=== PATIENT | female | born 1950 | race Caucasian/White ===

== ENCOUNTER 2017-01-04 07:26 | Day surgery (SDC) | payer MEDICARE, BC ==
[~2017-01-04 07:26] MED LIST: Lactated Ringers 1,000 ML IV SCH; Lidocaine 1% 4 ML ONE; Lidocaine 1%/Sod Bicarbonate in NS 8.4% 1 ML Syringe IV PRN; Propofol 200 MG/20 ML SDV ONE; Sodium Chloride 0.9% 10 ML Syringe FLUSH PRN; fentaNYL 100 MCG/2 ML SDV ONE
--- NOTE | 2017-01-04 07:37 | PCM.PREANE ---
Preanesthetic Assessment - Anesthesia/Transfusion/Family Hx Anesthesia History: Prior Anesthesia Without Reaction Family History of Anesthesia Reaction: No Transfusion History: No Prior Transfusion(s) Intubation History: Unknown - Review of Systems General: No Symptoms Pulmonary: No Symptoms (Quit smoking 30 yrs old. Patient states she has a couple spots on her lungs that the doctors are watching.) Cardiovascular: No Symptoms (History of A-Fib/HTN- last dose xarelto on 01-01-17 , lovenox injection on 01-03-17) Gastrointestinal: No Symptoms (GERD), Constipation, Diarrhea Neurological: No Symptoms (Low back pain radiating to right leg.), Numbness ( numbness noted on left upper leg on occasion) Other: Reports: Easy Bleeding, Easy Bruising, Diabetes (AM blood hpiqm=401 @ 0742), Sinus Problem (Acute sinusitis/allergic rhinitis) - Physical Assessment NPO Status Date: 01/03/17 NPO Status Time: 21:00 Pulse: 84 O2 Sat by Pulse Oximetry: 96 Respiratory Rate: 16 Blood Pressure: 111/74 Temperature: 37.0 C Height: 1.63 m Weight: 104.326 kg ASA Class: 2 Mental Status: Alert & Oriented x3 Airway Class: Mallampati = 2 Dentition: Reports: Normal Dentition, [place](s), [place] Thyro-Mental Finger Breadths: 3 Mouth Opening Finger Breadths: 3 ROM/Head Extension: Full Lungs: Clear to Auscultation, Normal Respiratory Effort Cardiovascular: Regular Rate, Regular Rhythm - Imaging/EKG Impressions: EKG: AFib rate=70 - Allergies Allergies/Adverse Reactions: Allergies Allergy/AdvReac Type Severity Reaction Status Date / Time No Known Allergies Allergy Verified 01/04/17 08:10 - Anesthesia Plan Pre-Op Medication Ordered: Beta Alice Beta Alice: Atenolol Med Last Dose Date: 01/04/17 Med Last Dose Time: 06:00 - Acknowledgements Anesthesia Type Planned: MAC Pt an Appropriate Candidate for the Planned Anesthesia: Yes Alternatives and Risks of Anesthesia Discussed w Pt/Guardian: Yes Pt/Guardian Understands and Agrees with Anesthesia Plan: Yes PreAnesthesia Questionnaire HEENT History: Reports: Allergic Rhinitis, Impaired Vision, Sinusitis Cardiovascular History: Reports: Afib, Heart Murmur, High Cholesterol, Hypertension, Other (See Below) Other Cardiovascular History: thoracic aortic aneurysm Respiratory History: Reports: None Gastrointestinal History: Reports: GERD, Hemorrhoids, Other (See Below) Other Gastrointestinal History: dysphagia, rectal bleeding Genitourinary History: Reports: Renal Calculus PROFESSOR OF BUSINESS ADMINISTRATION History: Reports: None Musculoskeletal History: Reports: Arthritis, Other (See Below) Other Musculoskeletal History: right lower leg radiculopathy Neurological History: Reports: Other (See Below) Other Neuro History: lumbar degerative joint disease, low back surgery Psychiatric History: Reports: Other (See Below) Other Psychiatric History: fatigue Endocrine/Metabolic History: Reports: Diabetes, Type II Hematologic History: Reports: None Immunologic History: Reports: None Oncologic (Cancer) History: Reports: Basal Cell Carcinoma Dermatologic History: Reports: Other (See Below) Other Dermatologic History: actinic keratosis, atypical skin lesion - Past Surgical History Cardiovascular Surgical History: Reports: None Respiratory Surgical History: Reports: None GI Surgical History: Reports: Appendectomy, Cholecystectomy, Colonoscopy Female Surgical History: Reports: None, Hysterectomy, Oophorectomy Male Surgical History: Reports: None Endocrine Surgical History: Reports: None Neurological Surgical History: Reports: None Oncologic Surgical History: Reports: None - SUBSTANCE USE Smoking Status *Q: Former Smoker Recreational Drug Use History: No - HOME MEDS Home Medications: Home Meds Aspirin 81 mg PO DAILY 01/03/17 [History] Atenolol [Atenolol] 100 mg PO DAILY 01/03/17 [History] Cholecalciferol (Vitamin D3) [Vitamin D3] 1,000 mg PO DAILY 01/03/17 [History] Hydrochlorothiazide 12.5 mg PO DAILY 01/03/17 [History] Lisinopril [Lisinopril] 10 mg PO DAILY 01/03/17 [History] Multivitamin [Poly-Vitamin] 1 tab PO DAILY 01/03/17 [History] Rivaroxaban [Xarelto] 20 mg PO DAILY 01/03/17 [History] Simvastatin [Zocor] 20 mg PO DAILY 01/03/17 [History] metFORMIN [Glucophage XR] 750 mg PO DAILY 01/03/17 [History] traMADol [Ultram] 50 mg PO DAILY 01/03/17 [History] - CURRENT (IN HOUSE) MEDS Current Meds: Current Medications Lactated Ringer's (Ringers, Lactated) 1,000 mls @ 125 mls/hr IV ASDIRECTED JACEK Lidocaine/Sodium Bicarbonate (Buffered Lidocaine 1% In Ns 8.4%) 0.25 ml IV ONETIME PRN PRN Reason: Prior to IV Start Sodium Chloride (Saline Flush) 10 ml FLUSH ASDIRECTED PRN PRN Reason: Keep Vein Open Discontinued Medications Fentanyl (Sublimaze) Confirm Administered Dose 100 mcg .ROUTE .STK-MED ONE Stop: 01/04/17 07:25 Lidocaine HCl (Xylocaine-Mpf 1%) Confirm Administered Dose 4 mls @ as directed .ROUTE .STK-MED ONE Stop: 01/04/17 07:23 Propofol (Diprivan 20 Ml) Confirm Administered Dose 200 mg .ROUTE .STK-MED ONE Stop: 01/04/17 07:24
--- NOTE | 2017-01-04 09:00 | PCM.OPNOTE ---
- General Post-Op/Procedure Note Date of Surgery/Procedure: 01/04/17 Operative Procedure(s): Colonoscopy with proximal transverse colon and sigmoid polypectomy using cold forceps Findings: 1. Prominent anal tags 2. 3 column slightly prolapsing bleeding internal hemorrhoids 3. Sigmoid and transverse colonic diverticulosis 4. Diminutive 5 mm polyps of the proximal transverse colon and sigmoid No mass lesion seen Pre Op Diagnosis: Bright red bleeding per rectum Post-Op Diagnosis: 1. Internal hemorrhoids with perianal tags. 2. Diminutive colon polyps 2. 3. Uncomplicated diverticulosis Anesthesia Technique: MAC, Moderate Sedation Primary Surgeon: Amadou Richards Pathology: 2 polyps EBL in mLs: 0 Complications: None Condition: Good Free Text/Narrative:: After adequate IV sedation and analgesia was obtained with monitoring the patient was placed on her left side. Perianal inspection revealed a moderately large anal tag. There were slightly prolapsing 3 column internal hemorrhoids which were bleeding slightly. There was no strangulation or gangrene. Digital rectal examination revealed normal sphincter tone and I appreciated the protruding luminal hemorrhoids. A lubricated colonoscope was then inserted into the rectum and advanced to the cecum without difficulty area of the bowell preparation was fair. The cecum and ascending colon were endoscopically normal with no mass lesions or inflammatory changes seen. There was a diminutive polyp in the proximal transverse colon which was removed with cold forceps. There were a few scattered uncomplicated diverticuli in the transverse colon. The descending colon was endoscopically normal. There were a few scattered diverticula in the sigmoid. In the proximal sigmoid there was a diminutive polyp which was removed with cold forceps. The rectum proximally was unremarkable. In the retroflexed view the internal hemorrhoids were observed. There were no clots in the rectum. The were no mass lesions in the rectum and sigmoid. Production Control Expediter photographs were taken for the patient and for the medical record.
--- NOTE | 2017-01-04 09:05 | PCM48HPAN ---
Post Anesthesia Note - EVALUATION WITHIN 48HRS OF ANESTHETIC Vital Signs in Normal Range: Yes Patient Participated in Evaluation: Yes Respiratory Function Stable: Yes Airway Patent: Yes Cardiovascular Function Stable: Yes Hydration Status Stable: Yes Pain Control Satisfactory: Yes Nausea and Vomiting Control Satisfactory: Yes Mental Status Recovered: Yes - COMMENTS/OBSERVATIONS Free Text/Narrative:: Pt resting quietly. VSS. No c/0 discomfort
== END 2017-01-04 09:50 | disposition home or self-care (01) ==
LOC: JD.SDS 07:26
PROVIDERS: ATTEND Surgery
DX: D12.3 Benign neoplasm of transverse colon (principal); K57.30 Diverticulosis of large intestine without perforation or abscess without bleeding; K64.8 Other hemorrhoids; K64.4 Residual hemorrhoidal skin tags; I10 Essential (primary) hypertension; K21.9 Gastro-esophageal reflux disease without esophagitis; E11.9 Type 2 diabetes mellitus without complications; Z79.82 Long term (current) use of aspirin; Z79.84 Long term (current) use of oral hypoglycemic drugs; Z79.899 Other long term (current) drug therapy; Z90.49 Acquired absence of other specified parts of digestive tract; Z90.710 Acquired absence of both cervix and uterus; Z87.891 Personal history of nicotine dependence
CPT/HCPCS: 45380; 82962; J7120; 00810; 88305; J2704; J3010

== ENCOUNTER 2017-07-19 16:29 | Emergency (ER) | payer MEDICARE, BC ==
--- NOTE | 2017-07-19 16:49 | EDM.PDOC ---
ED HPI GENERAL MEDICAL PROBLEM - General Chief Complaint: Cardiovascular Problem Stated Complaint: SHORTNESS OF BREATH/ LOW BLOOD PRESSURE Time Seen by Provider: 07/19/17 16:49 Source of Information: Reports: Patient - History of Present Illness INITIAL COMMENTS - FREE TEXT/NARRATIVE: Patient is here for persistent fatigue and weakness. She has known anemia, had a benefit for infusion yesterday. She presents to the emergency room today as she felt lightheaded and she has been trying to take her blood pressure and it was too low for her to register on her home BP monitor. It was recommended by her primary provider that she be evaluated in the emergency room if blood pressure was low. Patient states that overall her fatigue and dyspnea on exertion is stable. Patient denies any chest pain. She does have chronic atrial fibrillation, she is beta suman and Xarelto for this. She has persistently bleeding hemorrhoids which is likely the source of her anemia. She has been referred to surgery for more permanent treatment of this. - Related Data Allergies Allergy/AdvReac Type Severity Reaction Status Date / Time No Known Allergies Allergy Verified 07/19/17 16:36 Home Meds: Home Meds Aspirin 81 mg PO DAILY 01/03/17 [History] Atenolol 100 mg PO DAILY 01/03/17 [History] Cholecalciferol (Vitamin D3) [Vitamin D3] 2,000 mg PO DAILY 01/03/17 [History] Lisinopril 10 mg PO DAILY 01/03/17 [History] Multivitamin [Poly-Vitamin] 1 tab PO DAILY 01/03/17 [History] Rivaroxaban [Xarelto] 20 mg PO DAILY 01/03/17 [History] Simvastatin [Zocor] 20 mg PO DAILY 01/03/17 [History] metFORMIN [Glucophage XR] 750 mg PO DAILY 01/03/17 [History] Furosemide [Lasix] 20 mg PO DAILY 07/18/17 [History] Magnesium 250 mg PO DAILY 07/18/17 [History] Past Medical History HEENT History: Reports: Allergic Rhinitis, Impaired Vision, Sinusitis Cardiovascular History: Reports: Afib, Heart Murmur, High Cholesterol, Hypertension, Other (See Below) Other Cardiovascular History: thoracic aortic aneurysm Respiratory History: Reports: None Gastrointestinal History: Reports: GERD, Hemorrhoids, Other (See Below) Other Gastrointestinal History: dysphagia, rectal bleeding Genitourinary History: Reports: Renal Calculus CIRCULAR KNITTER History: Reports: None Musculoskeletal History: Reports: Arthritis, Other (See Below) Other Musculoskeletal History: right lower leg radiculopathy Neurological History: Reports: Other (See Below) Other Neuro History: lumbar degerative joint disease, low back surgery Psychiatric History: Reports: Other (See Below) Other Psychiatric History: fatigue Endocrine/Metabolic History: Reports: Diabetes, Type II Hematologic History: Reports: None Immunologic History: Reports: None Oncologic (Cancer) History: Reports: Basal Cell Carcinoma Dermatologic History: Reports: Other (See Below) Other Dermatologic History: actinic keratosis, atypical skin lesion - Past Surgical History Cardiovascular Surgical History: Reports: None Respiratory Surgical History: Reports: None GI Surgical History: Reports: Appendectomy, Cholecystectomy, Colonoscopy Female Surgical History: Reports: None, Hysterectomy, Oophorectomy Endocrine Surgical History: Reports: None Neurological Surgical History: Reports: None Oncologic Surgical History: Reports: None Social & Family History - Tobacco Use Smoking Status *Q: Former Smoker Used Tobacco, but Quit: No Month/Year Tobacco Last Used: 1974 - Caffeine Use Caffeine Use: Reports: Soda ED ROS GENERAL - Review of Systems Review Of Systems: See Below Constitutional: Reports: Malaise, Weakness, Fatigue. Denies: Fever, Chills, Night Sweats, Diaphoresis, Decreased Appetite HEENT: Reports: No Symptoms Respiratory: Reports: Shortness of Breath. Denies: Wheezing, Pleuritic Chest Pain, Cough Cardiovascular: Reports: Blood Pressure Problem, Dyspnea on Exertion, Edema, Lightheadedness. Denies: Chest Pain, Orthopnea, PND, Syncope Endocrine: Reports: Fatigue GI/Abdominal: Reports: Diarrhea, Other (hemorrhoids). Denies: Abdominal Pain, Constipation, Decreased Appetite : Reports: No Symptoms Musculoskeletal: Reports: No Symptoms Skin: Reports: No Symptoms Neurological: Reports: No Symptoms ED EXAM, GENERAL - Physical Exam Exam: See Below Exam Limited By: No Limitations General Appearance: Alert, WD/WN Eye Exam: Bilateral Eye: PERRL Throat/Mouth: Normal Inspection, Normal Oropharynx Head: Atraumatic, Normocephalic Neck: Normal Inspection, Supple, Non-Tender Respiratory/Chest: No Respiratory Distress, Lungs Clear, Normal Breath Sounds Cardiovascular: Systolic Murmur (II/), Irregularly Irregular Peripheral Pulses: 2+: Posterior Tibial (L), Posterior Tibial (R) GI/Abdominal: Normal Bowel Sounds, Soft, Non-Tender Neurological: Alert, Oriented, CN II-XII Intact Psychiatric: Normal Affect, Normal Mood Skin Exam: Warm, Dry, Intact EKG INTERPRETATION EKG Date: 07/19/17 Time: 16:40 Rhythm: A-Fib Rate (Beats/Min): 91 EKG Interpretation Comments: Reviewed with Dr Lynn Course - Vital Signs Last Recorded V/S: Last Vital Signs Temp 97.9 F 07/19/17 16:37 Pulse 90 07/19/17 16:37 Resp 17 07/19/17 16:37 BP 112/69 07/19/17 16:37 Pulse Ox 99 07/19/17 16:37 - Orders/Labs/Meds Orders: Active Orders 24 hr Category Date Time Status EKG 12 Lead [EKG Documentation Completion] [RC] STAT Care 07/19/17 16:35 Active T4 FREE [CHEM] Stat Lab 07/19/17 16:40 Received Labs: Laboratory Tests 07/19/17 07/19/17 07/19/17 Range/Units 16:40 16:40 16:40 WBC 7.34 (3.98-10.04) K/mm3 RBC 3.79 L (3.98-5.22) M/mm3 Hgb 9.1 L (11.2-15.7) gm/L Hct 30.3 L (34.1-44.9) % MCV 79.9 (79.4-94.8) fl MCH 24.0 L (25.6-32.2) pg MCHC 30.0 L (32.2-35.5) g/dl RDW Std Deviation 38.6 (36.4-46.3) fL Plt Count 278 (182-369) K/mm3 MPV 11.5 (9.4-12.3) fl Neutrophils % (Manual) 62 H (40-60) % Band Neutrophils % 0 (0-10) % Lymphocytes % (Manual) 30 (20-40) % Atypical Lymphs % 0 % Monocytes % (Manual) 5 (2-10) % Eosinophils % (Manual) 3 (0.7-5.8) % Basophils % (Manual) 0 L (0.1-1.2) Platelet Estimate Adequate Polychromasia Few Hypochromasia 1+ slight Poikilocytosis 1+ slight Anisocytosis 1+ slight Ovalocytes Few RBC Morph Comment Not Reportable Sodium 140 (136-145) mEq/L Potassium 4.1 (3.5-5.1) mEq/L Chloride 101 (98-107) mEq/L Carbon Dioxide 29 (21-32) mEq/L Anion Gap 14.1 (5-15) BUN 35 H (7-18) mg/dL Creatinine 1.6 H (0.55-1.02) mg/dL Est Cr Clr Drug Dosing 29.46 mL/min Estimated GFR (MDRD) 32 (>60) mL/min BUN/Creatinine Ratio 21.9 H (14-18) Glucose 107 (80-115) mg/dL Calcium 9.3 (8.5-10.1) mg/dL Magnesium 1.7 L (1.8-2.4) mg/dl Total Bilirubin 0.2 (0.2-1.0) mg/dL AST 17 (15-37) U/L ALT 20 (14-59) U/L Alkaline Phosphatase 59 (46-116) U/L Troponin I < 0.017 (0.00-0.056) ng/mL C-Reactive Protein < 0.2 (<1.0) mg/dL Total Protein 7.2 (6.4-8.2) g/dl Albumin 3.4 (3.4-5.0) g/dl Globulin 3.8 gm/dL Albumin/Globulin Ratio 0.9 L (1-2) TSH 3rd Generation 4.029 H (0.358-3.74) uIU/mL - Re-Assessments/Exams Free Text/Narrative Re-Assessment/Exam: Patient denies any chest pain. Had recent normal chest x-ray, though these results are unable for us to review. Patient declines repeat chest x-ray. Her oxygen is 99% on room air and her lungs are clear bilaterally. She does have chronic atrial fibrillation which is rate controlled. She is scheduled for an echocardiogram next week. Has had regular follow-up with cardiology in September. Blood pressure is in normal range here in the emergency room. EKG demonstrates chronic atrial fibrillation that is rate controlled. WBC 7,340 with 62% neutrophils and no bands. CRP <0.2. Troponin is negative. Hemoglobin is 9.1, which is already at 0.1 from yesterday. She is also going to add an oral iron supplement. Advised that she monitor for any constipation, though she does have chronic diarrhea so this should not be an issue. Anemia is likely the cause of her fatigue but this will need to be monitored. She has been referred to surgery for more permanent repair of her persistently bleeding hemorrhoids. Creatinine has increased to 1.6 from 1.4 yesterday and 1.6 months ago. Will have patient hold her Lasix and hydrochlorothiazide for now. This is likely contributing to her hypotension as well as increasing creatinine. Will have her follow very low sodium diet. She is to wear her compression stockings daily. TSH 4.029, this is up from 3.748 in January. This is likely subclinical thyroid hypothyroidism, but free T4 is still pending. Patient will call the clinic for this result either tomorrow or discuss with PCP at her follow-up next week. If her fatigue is not improving with the improvement in her anemia, may consider treating this if she is symptomatic. Patient will follow up with PCP next week or return to the emergency room if needed. 07/19/17 18:30 Departure - Departure Time of Disposition: 18:37 Disposition: Home, Self-Care 01 Condition: Good Clinical Impression: Elevated serum creatinine Anemia, iron deficiency Qualifiers: Iron deficiency anemia type: chronic blood loss Qualified Code(s): D50.0 - Iron deficiency anemia secondary to blood loss (chronic) Fatigue Qualifiers: Fatigue type: unspecified Qualified Code(s): R53.83 - Other fatigue Instructions: Anemia, Fatigue Referrals: aMyda Whitfield HARVESTING SUPERVISOR [Primary Care Provider] - Forms: ED Department Discharge Additional Instructions: Start a daily oral [id number] iron supplement. Hold your Lasix and hydrochlorothiazide both for now. Wear compression stockings daily. Follow a low-salt diet. Follow-up with your primary provider next week or return to the emergency room if needed. - My Orders Last 24 Hours: My Active Orders 07/19/17 16:35 EKG 12 Lead [EKG Documentation Completion] [RC] STAT 07/19/17 16:40 T4 FREE [CHEM] Stat - Assessment/Plan Last 24 Hours: My Active Orders 07/19/17 16:35 EKG 12 Lead [EKG Documentation Completion] [RC] STAT 07/19/17 16:40 T4 FREE [CHEM] Stat
== END 2017-07-19 18:35 | disposition home or self-care (01) ==
LOC: JD.ED 16:29
DX: D50.0 Iron deficiency anemia secondary to blood loss (chronic) (principal); R79.89 Other specified abnormal findings of blood chemistry; E78.00 Pure hypercholesterolemia, unspecified; I10 Essential (primary) hypertension; I48.91 Unspecified atrial fibrillation; K21.9 Gastro-esophageal reflux disease without esophagitis; Z87.442 Personal history of urinary calculi; E11.9 Type 2 diabetes mellitus without complications; Z90.49 Acquired absence of other specified parts of digestive tract; Z79.82 Long term (current) use of aspirin; Z79.899 Other long term (current) drug therapy; Z79.84 Long term (current) use of oral hypoglycemic drugs; Z87.891 Personal history of nicotine dependence
CPT/HCPCS: 36415; 80053; 83735; 84439; 84443; 84484; 85007; 85027; 86140; 93005; 99285-25

== ENCOUNTER 2019-09-20 10:54 | Emergency (ER) | payer MEDICARE, BC ==
[2019-09-20] MEDS ORDERED: Alum Hydrox/Mag Hydrox/Simeth 30 ML, Lidocaine 2% 15 ML PO ONE ×2 (11:46)
--- NOTE | 2019-09-20 12:16 | CR ---
Chest: 2 views of the chest were obtained. Comparison: No prior chest imaging. Heart is mildly enlarged. Upper mediastinum is normal. Slight scarring or atelectasis is noted within the mid left lung. Pulmonary vessels are minimally congested. No pleural effusions are appreciated. Bony structures show scattered degenerative change with disc space narrowing and endplate spurring within the spine. Impression: 1. Heart slightly enlarged with minimal pulmonary vascular congestion. 2. Minimal scarring or atelectasis within the left midlung. 3. Degenerative change within the spine. Diagnostic code #3 This report was dictated in MDT
--- NOTE | 2019-09-20 12:22 | EDM.PDOC ---
ED HPI GENERAL MEDICAL PROBLEM - General Chief Complaint: Gastrointestinal Problem Stated Complaint: HEART BURN Time Seen by Provider: 09/20/19 11:24 Source of Information: Reports: Patient History Limitations: Reports: No Limitations - History of Present Illness INITIAL COMMENTS - FREE TEXT/NARRATIVE: Patient is a 69-year-old female who presents to the emergency department with 3- day history of intermittent chest "heaviness" and belching. She describes it as heartburn. She states that she has had a hiatal hernia in the past with a diagnosis of GERD, however does not cause problems for "quite a while ". Her symptoms began Monday morning. She states that the symptoms are worse in the morning and tend to improve throughout the day. Is also improved with eating. She has had increased belching. She has not taken any [id number] medications. She is not on a PPI. She denies any shortness of breath, nausea, vomiting, or diarrhea. - Related Data Allergies Allergy/AdvReac Type Severity Reaction Status Date / Time No Known Allergies Allergy Verified 09/20/19 11:06 Home Meds: Home Meds Cholecalciferol (Vitamin D3) [Vitamin D3] 2,000 mg PO DAILY 01/03/17 [History] Lisinopril 10 mg PO DAILY 01/03/17 [History] Multivitamin [Poly-Vitamin] 1 tab PO DAILY 01/03/17 [History] atenoloL [Atenolol] 100 mg PO DAILY 01/03/17 [History] Simvastatin [Zocor] 20 mg PO DAILY 08/01/17 [History] Apixaban [Eliquis] 5 mg PO BID 09/20/19 [History] Omeprazole 20 mg PO ASDIRECTED #35 capsule. 09/20/19 [Rx] Oxybutynin Chloride [Ditropan Xl] 10 mg PO DAILY 09/20/19 [History] SitaGLIPtin [Januvia] 100 mg PO DAILY 09/20/19 [History] Sucralfate [Carafate] 1 gm PO QIDACANDBED 10 Days #40 tablet 09/20/19 [Rx] Past Medical History HEENT History: Reports: Allergic Rhinitis, Impaired Vision, Sinusitis Cardiovascular History: Reports: Afib, Heart Murmur, High Cholesterol, Hypertension, Other (See Below) Other Cardiovascular History: thoracic aortic aneurysm Respiratory History: Reports: None Gastrointestinal History: Reports: GERD, Hemorrhoids, Other (See Below) Other Gastrointestinal History: dysphagia, rectal bleeding Genitourinary History: Reports: Renal Calculus FRIT MIXER AND BURNER History: Reports: None Musculoskeletal History: Reports: Arthritis, Other (See Below) Other Musculoskeletal History: right lower leg radiculopathy Neurological History: Reports: Other (See Below) Other Neuro History: lumbar degerative joint disease, low back surgery Psychiatric History: Reports: Other (See Below) Other Psychiatric History: fatigue Endocrine/Metabolic History: Reports: Diabetes, Type II Hematologic History: Reports: None Immunologic History: Reports: None Oncologic (Cancer) History: Reports: Basal Cell Carcinoma Dermatologic History: Reports: Other (See Below) Other Dermatologic History: actinic keratosis, atypical skin lesion - Past Surgical History Cardiovascular Surgical History: Reports: None Respiratory Surgical History: Reports: None GI Surgical History: Reports: Appendectomy, Cholecystectomy, Colonoscopy Female Surgical History: Reports: None, Hysterectomy, Oophorectomy Endocrine Surgical History: Reports: None Neurological Surgical History: Reports: None Oncologic Surgical History: Reports: None Social & Family History - Family History Family Medical History: Noncontributory - Tobacco Use Smoking Status *Q: Former Smoker Used Tobacco, but Quit: Yes Month/Year Tobacco Last Used: 02/1979 - Caffeine Use Caffeine Use: Reports: None - Recreational Drug Use Recreational Drug Use: No ED ROS GENERAL - Review of Systems Review Of Systems: See Below Constitutional: Reports: No Symptoms. Denies: Fever, Chills HEENT: Reports: No Symptoms Respiratory: Reports: No Symptoms. Denies: Shortness of Breath, Cough Cardiovascular: Reports: No Symptoms. Denies: Chest Pain, Lightheadedness, Palpitations Endocrine: Reports: No Symptoms GI/Abdominal: Reports: Other (Chest heaviness and belching). Denies: Abdominal Pain, Diarrhea, Nausea, Vomiting : Reports: No Symptoms Musculoskeletal: Reports: No Symptoms Skin: Reports: No Symptoms Neurological: Reports: No Symptoms Psychiatric: Reports: No Symptoms Hematologic/Lymphatic: Reports: No Symptoms Immunologic: Reports: No Symptoms ED EXAM, GENERAL - Physical Exam Exam: See Below Exam Limited By: No Limitations General Appearance: Alert, WD/WN, No Apparent Distress Respiratory/Chest: No Respiratory Distress, Lungs Clear, Normal Breath Sounds, No Accessory Muscle Use, Chest Non-Tender Cardiovascular: Normal Peripheral Pulses, Regular Rate, Rhythm, No Edema, No Gallop, No JVD, No Murmur, No Rub GI/Abdominal: Normal Bowel Sounds, Soft, Non-Tender, No Organomegaly, No Distention, No Abnormal Bruit, No Mass Neurological: Alert, Oriented, CN II-XII Intact, Normal Cognition, Normal Gait, Normal Reflexes, No Motor/Sensory Deficits Psychiatric: Normal Affect, Normal Mood Skin Exam: Warm, Dry, Intact, Normal Color, No Rash EKG INTERPRETATION EKG Date: 09/20/19 Time: 11:54 Rhythm: A-Fib Rate (Beats/Min): 58 [place]: Normal P-Wave: Present QRS: Normal ST-T: Normal QT: Normal Comparison: NA - No Prior EKG Course - Vital Signs Last Recorded V/S: Last Vital Signs Temp 97.8 F 09/20/19 11:11 Pulse 78 09/20/19 11:11 Resp 14 09/20/19 11:11 BP 127/94 H 09/20/19 11:11 Pulse Ox 99 09/20/19 11:11 - Orders/Labs/Meds Orders: Active Orders 24 hr Category Date Time Status EKG Documentation Completion [RC] STAT Care 09/20/19 11:24 Active Labs: Laboratory Tests 09/20/19 09/20/19 Range/Units 11:43 11:43 WBC 10.15 H (3.98-10.04) K/mm3 RBC 5.42 H (3.98-5.22) M/mm3 Hgb 13.8 (11.2-15.7) gm/dl Hct 43.1 (34.1-44.9) % MCV 79.5 D (79.4-94.8) fl MCH 25.5 L (25.6-32.2) pg MCHC 32.0 L (32.2-35.5) g/dl RDW Std Deviation 44.2 (36.4-46.3) fL Plt Count 202 (182-369) K/mm3 MPV 10.5 (9.4-12.3) fl Neut % (Auto) 76.7 H (34.0-71.1) % Lymph % (Auto) 14.1 L (19.3-51.7) % Wheeler % (Auto) 7.6 (4.7-12.5) % Eos % (Auto) 1.0 (0.7-5.8) Baso % (Auto) 0.2 (0.1-1.2) % Neut # (Auto) 7.79 H (1.56-6.13) K/mm3 Lymph # (Auto) 1.43 (1.18-3.74) K/mm3 Wheeler # (Auto) 0.77 H (0.24-0.36) K/mm3 Eos # (Auto) 0.10 (0.04-0.36) K/mm3 Baso # (Auto) 0.02 (0.01-0.08) K/mm3 Manual Slide Review Normal smear Sodium 136 (136-145) mEq/L Potassium 3.8 (3.5-5.1) mEq/L Chloride 101 (98-107) mEq/L Carbon Dioxide 26 (21-32) mEq/L Anion Gap 12.8 (5-15) BUN 35 H (7-18) mg/dL Creatinine 1.2 H (0.55-1.02) mg/dL Est Cr Clr Drug Dosing 38.21 mL/min Estimated GFR (MDRD) 45 (>60) mL/min BUN/Creatinine Ratio 29.2 H (14-18) Glucose 110 (80-115) mg/dL Calcium 8.9 (8.5-10.1) mg/dL Total Bilirubin 0.6 (0.2-1.0) mg/dL AST 14 L (15-37) U/L ALT 21 (14-59) U/L Alkaline Phosphatase 54 (46-116) U/L Troponin I < 0.017 (0.00-0.056) ng/mL Total Protein 6.6 (6.4-8.2) g/dl Albumin 3.0 L (3.4-5.0) g/dl Globulin 3.6 gm/dL Albumin/Globulin Ratio 0.8 L (1-2) Meds: Medications Discontinued Medications Generic Name Dose Route Start Last Admin Trade Name Freq PRN Reason Stop Dose Admin Al Hydroxide/Mg Hydroxide 30 0 ml 09/20/19 11:46 09/20/19 11:54 ml/ Lidocaine HCl 15 ml PO 09/20/19 11:47 45 ml ONETIME ONE Administration - Re-Assessments/Exams Free Text/Narrative Re-Assessment/Exam: 09/20/19 12:40 Hematology was significant for WBC slightly elevated at 10.15, BUN 35, creatinine 1.2. Troponin was negative. EKG showed A. fib but no acute changes. Chest x-ray was significant for slightly enlarged heart with minimal pulmonary vascular congestion. Minimal scarring or atelectasis within the left midlung. Degenerative changes of the spine. Patient had minimal relief with a GI cocktail. We will give her a dose of Carafate. Discussed dietary modifications such as avoiding spicy, acidic, or greasy foods. Minimize caffeine intake. I will send a prescription for Carafate and omeprazole to [facility]. Recommend that she follow-up with her primary care provider early next week to monitor her symptoms and change her regimen if needed. Return to the ER for worsening symptoms. Departure - Departure Time of Disposition: 12:41 Disposition: Home, Self-Care 01 Condition: Good Clinical Impression: GERD (gastroesophageal reflux disease) Qualifiers: Esophagitis presence: esophagitis presence not specified Qualified Code(s): K21.9 - Gastro-esophageal reflux disease without esophagitis - Discharge Information *PRESCRIPTION DRUG MONITORING PROGRAM REVIEWED*: No *COPY OF PRESCRIPTION DRUG MONITORING REPORT IN PATIENT STEFANY: No Prescriptions: Sucralfate [Carafate] 1 gm PO QIDACANDBED 10 Days #40 tablet Omeprazole 20 mg PO ASDIRECTED #35 capsule. Instructions: Food Choices for Gastroesophageal Reflux Disease, Adult, Gastroesophageal Reflux Disease, Adult, [id number] Referrals: Mayda Whitfield PUBLIC SPEAKING COACH [Primary Care Provider] - Forms: ED Department Discharge Additional Instructions: You were seen in the emergency department today for a 3-day history of heartburn and belching. Work-up in the ER included blood work, an EKG of your heart, and a chest x-ray. This was found to be overall normal. There are no signs that you are having a heart attack. While in the ER you received a GI cocktail, Carafate, and protonix. A prescription for Carafate and omeprazole has been sent to [facility] in [place]. Take these medications as prescribed. Recommend that you avoid spicy, acidic, greasy foods and caffeine. Follow-up with your primary care provider early next week for recheck. Return to the ER for worsening symptoms. Sepsis Event Note (ED) - Evaluation Sepsis Screening Result: No Definite Risk - Focused Exam Vital Signs: Vital Signs Temp Pulse Resp BP Pulse Ox 09/20/19 11:11 97.8 F 78 14 127/94 H 99 - My Orders Last 24 Hours: My Active Orders 09/20/19 11:24 EKG Documentation Completion [RC] STAT - Assessment/Plan Last 24 Hours: My Active Orders 09/20/19 11:24 EKG Documentation Completion [RC] STAT
[2019-09-20] MEDS ORDERED: Pantoprazole 40 MG Tab.CR PO ONE (12:46)
== END 2019-09-20 13:00 | disposition home or self-care (01) ==
LOC: JD.ED 10:54
DX: K21.9 Gastro-esophageal reflux disease without esophagitis (principal); Z79.899 Other long term (current) drug therapy; I10 Essential (primary) hypertension; E78.00 Pure hypercholesterolemia, unspecified; I48.91 Unspecified atrial fibrillation; E11.9 Type 2 diabetes mellitus without complications; Z79.84 Long term (current) use of oral hypoglycemic drugs; Z87.891 Personal history of nicotine dependence; Z90.89 Acquired absence of other organs; Z90.49 Acquired absence of other specified parts of digestive tract; Z90.710 Acquired absence of both cervix and uterus
CPT/HCPCS: 36415; 71046; 80053; 84484; 85025; 93005; 99284; A9270; 93010; 99282

== ENCOUNTER 2020-03-31 07:41 | Day surgery (SDC) | payer MEDICARE, BC ==
[~2020-03-31 07:41] MED LIST changes: -Lidocaine 1% 4 ML ONE; +Lidocaine 1%/Sod Bicarbonate in NS 8.4% 1 ML Syringe IDERM PRN; -Lidocaine 1%/Sod Bicarbonate in NS 8.4% 1 ML Syringe IV PRN; -fentaNYL 100 MCG/2 ML SDV ONE
[2020-03-31] MEDS ORDERED: Lidocaine 1% 8 ML ONE (07:43)
[2020-03-31] MEDS ORDERED: Lidocaine 1% 4 ML ONE (07:46)
--- NOTE | 2020-03-31 08:27 | PCM.PREANE ---
Preanesthetic Assessment - Procedure Proposed Procedure: colonoscopy - Anesthesia/Transfusion/Family Hx Anesthesia History: Prior Anesthesia Without Reaction (slow to wake up from GA she reports) Family History of Anesthesia Reaction: No Transfusion History: No Prior Transfusion(s) Intubation History: Unknown - Review of Systems General: No Symptoms Pulmonary: No Symptoms Cardiovascular: No Symptoms, Other (murmur ) Gastrointestinal: No Symptoms Neurological: No Symptoms, Numbness, Tingling, Other (numbness and tingling in back, right lower leg, has history of L5-S1 fusion ) Other: Reports: Easy Bleeding, Easy Bruising, Diabetes (oral meds only no insulin intake ) - Physical Assessment NPO Status Date: 03/31/20 NPO Status Time: 04:00 (finished oral prep ) Height: 1.63 m Weight: 105 kg ASA Class: 3 Mental Status: Alert & Oriented x3 Dentition: Reports: Normal Dentition ROM/Head Extension: Full Lungs: Clear to Auscultation, Normal Respiratory Effort Cardiovascular: Regular Rate, Regular Rhythm - Lab Values: Laboratory Last Values POC Glucose 124 mg/dL (80-115) H 03/31/20 08:02 - Allergies Allergies/Adverse Reactions: Allergies Allergy/AdvReac Type Severity Reaction Status Date / Time No Known Allergies Allergy Verified 03/30/20 13:17 - Blood Blood Available: No - Anesthesia Plan Pre-Op Medication Ordered: None - Acknowledgements Anesthesia Type Planned: MAC Pt an Appropriate Candidate for the Planned Anesthesia: Yes Alternatives and Risks of Anesthesia Discussed w Pt/Guardian: Yes Pt/Guardian Understands and Agrees with Anesthesia Plan: Yes PreAnesthesia Questionnaire HEENT History: Reports: Allergic Rhinitis, Impaired Vision, Sinusitis Cardiovascular History: Reports: Afib, Heart Murmur, High Cholesterol, Hypertension, Other (See Below) Other Cardiovascular History: thoracic aortic aneurysm Respiratory History: Reports: Sleep Apnea Gastrointestinal History: Reports: Colon Polyp, GERD, Hemorrhoids, Other (See Below) Other Gastrointestinal History: dysphagia, rectal bleeding Genitourinary History: Reports: Renal Calculus, Other (See Below) Other Genitourinary History: hematuria, kidney stones, OAB, frequency, proteinuria COMPLIANCE ATTORNEY History: Reports: None Musculoskeletal History: Reports: Arthritis, Gout, Osteoarthritis, Other (See Below) Other Musculoskeletal History: right lower leg radiculopathy, right shoulder pain, glenoid labrum tear, low back pain Neurological History: Reports: Other (See Below) Other Neuro History: lumbar degerative joint disease, low back surgery Psychiatric History: Reports: Depression, Other (See Below) Other Psychiatric History: fatigue Endocrine/Metabolic History: Reports: Diabetes, Type II, Obesity/BMI 30+ Hematologic History: Reports: Anemia, Iron Deficiency Immunologic History: Reports: None Oncologic (Cancer) History: Reports: Basal Cell Carcinoma Dermatologic History: Reports: Other (See Below) Other Dermatologic History: actinic keratosis, atypical skin lesion - Infectious Disease History Infectious Disease History: Reports: None - Past Surgical History Cardiovascular Surgical History: Reports: None Respiratory Surgical History: Reports: None GI Surgical History: Reports: Appendectomy, Cholecystectomy, Colonoscopy Female Surgical History: Reports: None, Hysterectomy, Oophorectomy Male Surgical History: Reports: None Endocrine Surgical History: Reports: None Neurological Surgical History: Reports: Other (See Below) Other Neurological Surgeries/Procedures: L5S1 back procedure with hardware placed Musculoskeletal Surgical History: Reports: None Oncologic Surgical History: Reports: None - SUBSTANCE USE Tobacco Use Status *Q: Former Tobacco User Recreational Drug Use History: No - HOME MEDS Home Medications: Home Meds Cholecalciferol (Vitamin D3) [Vitamin D3] 2,000 mg PO DAILY 01/03/17 [History] Lisinopril 10 mg PO DAILY 01/03/17 [History] Multivitamin [Poly-Vitamin] 1 tab PO DAILY 01/03/17 [History] atenoloL [Atenolol] 100 mg PO DAILY 01/03/17 [History] Simvastatin [Zocor] 20 mg PO DAILY 08/01/17 [History] Apixaban [Eliquis] 5 mg PO BID 09/20/19 [History] Oxybutynin Chloride [Ditropan Xl] 10 mg PO DAILY 09/20/19 [History] SitaGLIPtin [Januvia] 100 mg PO DAILY 09/20/19 [History] Ascorbic Acid [Vitamin C] 500 mg PO DAILY 03/30/20 [History] Magnesium 250 mg PO DAILY 03/30/20 [History] hydroCHLOROthiazide [Hydrochlorothiazide] 25 mg PO DAILY 03/30/20 [History] - CURRENT (IN HOUSE) MEDS Current Meds: Current Medications Lactated Ringer's (Ringers, Lactated) 1,000 mls @ 125 mls/hr IV ASDIRECTED JACEK Stop: 03/31/20 23:00 Lidocaine/Sodium Bicarbonate (Buffered Lidocaine 1% In Ns 8.4%) 0.25 ml IDERM ONETIME PRN PRN Reason: Prior to IV Start Stop: 03/31/20 18:00 Sodium Chloride (Saline Flush) 10 ml FLUSH ASDIRECTED PRN PRN Reason: Keep Vein Open Stop: 03/31/20 18:00 Discontinued Medications Lidocaine HCl (Xylocaine-Mpf 1%) Confirm Administered Dose 8 mls @ as directed .ROUTE .STK-MED ONE Stop: 03/31/20 07:44 Lidocaine HCl (Xylocaine-Mpf 1%) Confirm Administered Dose 4 mls @ as directed .ROUTE .STK-MED ONE Stop: 03/31/20 07:47 Propofol (Diprivan 20 Ml) Confirm Administered Dose 400 mg .ROUTE .STK-MED ONE Stop: 03/31/20 07:42
[2020-03-31] MEDS ORDERED: fentaNYL 100 MCG/2 ML SDV ONE (09:12)
--- NOTE | 2020-03-31 09:53 | PCM.PRNOTE ---
- Free Text/Narrative Note: Date: 03/31/2020 Procedure: screening colonoscopy Endoscopist: Arnoldo Shetty MD Findings: fair prep. single subcentimeter polyp in ascending colon. Diverticulosis. Prolapsing internal hemorrhoids with external hemorrhoidal skin tags. Detailed Report: The patient was taken to the endoscopy suite and placed in left lateral decubitus position. Time out was performed and monitored anesthesia care was initiated. On inspection of the anus, there were multiple larege external hemorrhoidal skin tags and visible prolapsing internal hemorrhoids. Digital rectal exam was unremarkable. The colonoscope was inserted and advanced to the cecum with remarkable ease. The appendiceal orifice and ileocecal valve were seen. The prep was fair, with coker yellow effluent, some fluffy debris, and a lot of bubbles. Surfactant was added to irrigation to aid with visualization. The scope was slowly withdrawn and mucosal surfaces carefully inspected. A single small sessile polyp < 1 cm was seen in the ascending colon. This was removed with cold forceps, and tissue base was fulgurated. No other polyps were seen. There was diverticulosis in the descending and sigmoid colon. Internal hemorrhoids noted again on retroflexion of the scope within the rectum. Air was suctioned and the scope withdrawn. The patient tolerated the procedure well.
--- NOTE | 2020-03-31 10:25 | PCM48HPAN ---
Post Anesthesia Note - EVALUATION WITHIN 48HRS OF ANESTHETIC Vital Signs in Normal Range: Yes Patient Participated in Evaluation: Yes Respiratory Function Stable: Yes Airway Patent: Yes Cardiovascular Function Stable: Yes Hydration Status Stable: Yes Pain Control Satisfactory: Yes Nausea and Vomiting Control Satisfactory: Yes Mental Status Recovered: Yes Vital Signs: Last Vital Signs Temp 97.9 F 03/31/20 09:49 Pulse 64 03/31/20 10:18 Resp 17 03/31/20 10:18 BP 108/63 03/31/20 10:18 Pulse Ox 95 03/31/20 10:18
== END 2020-03-31 11:06 | disposition home or self-care (01) ==
LOC: JD.SDS 07:41
PROVIDERS: ATTEND Surgery
DX: Z12.11 Encounter for screening for malignant neoplasm of colon (principal); D12.2 Benign neoplasm of ascending colon; K57.30 Diverticulosis of large intestine without perforation or abscess without bleeding; K64.4 Residual hemorrhoidal skin tags; K64.8 Other hemorrhoids; I10 Essential (primary) hypertension; E78.00 Pure hypercholesterolemia, unspecified; I48.91 Unspecified atrial fibrillation; E11.9 Type 2 diabetes mellitus without complications; E66.9 Obesity, unspecified; Z01.812 Encounter for preprocedural laboratory examination; Z20.822 Contact with and (suspected) exposure to COVID-19; Z79.899 Other long term (current) drug therapy; Z90.49 Acquired absence of other specified parts of digestive tract; Z98.890 Other specified postprocedural states
CPT/HCPCS: 45380; 82962; J2704; J3010; J7120; U0002; 00812; 88305